=== PATIENT | female | born 1985 | race Caucasian/White ===

== ENCOUNTER 2018-08-10 18:04 | Emergency (ER) | payer OTHER ==
[~2018-08-10] VITALS: Ht 175.3 cm; Wt 56.7 kg
[2018-08-10] MEDS ORDERED: Monodox100 MG PO (18:45)
[2018-08-10] MEDS ORDERED: Cymbalta30 MG PO (18:56)
[2018-08-10] MEDS ORDERED: QUET25 PO (18:56)
[2018-08-10] MEDS ORDERED: Budeprion Sr150 MG PO (18:56)
== END 2018-08-10 19:05 | disposition home or self-care (01) ==
LOC: ER 18:04
DX: Z76.0 Encounter for issue of repeat prescription (principal); Z88.0 Allergy status to penicillin; Z88.8 Allergy status to other drugs, medicaments and biological substances; Z88.1 Allergy status to other antibiotic agents
CPT/HCPCS: 99281

== ENCOUNTER 2018-08-22 17:50 | Emergency (ER) | payer OTHER ==
[~2018-08-22] VITALS: Ht 175.3 cm; Wt 56.7 kg
[~2018-08-22 17:50] MED LIST: Budeprion Sr150 MG PO; Cymbalta30 MG PO; Monodox100 MG PO; QUET25 PO
[2018-08-22] MEDS ORDERED: BUPR150ER PO (18:16)
== END 2018-08-22 18:20 | disposition home or self-care (01) ==
LOC: ER 17:50
DX: Z76.0 Encounter for issue of repeat prescription (principal); Z88.0 Allergy status to penicillin; Z88.1 Allergy status to other antibiotic agents; Z88.8 Allergy status to other drugs, medicaments and biological substances; Z79.899 Other long term (current) drug therapy; F32.9 Major depressive disorder, single episode, unspecified
CPT/HCPCS: 99281